=== PATIENT | female | born 1990 | race Caucasian/White ===

== ENCOUNTER → 2019-12-20 | Outpatient (CLI) | payer BC ==
--- NOTE | 2019-12-20 14:16 | Diagnostic Imaging Report ---
PROCEDURE: CT abdomen and pelvis without contrast. TECHNIQUE: Multiple contiguous axial images were obtained through the abdomen and pelvis without the use of intravenous contrast. Auto Exposure Controls were utilized during the CT exam to meet ALARA standards for radiation dose reduction. INDICATION: Right flank pain and hematuria. No prior studies are available for comparison. The lung bases are clear. The liver and gallbladder are unremarkable. No biliary ductal dilatation is seen. The pancreas and spleen are unremarkable. No adrenal mass is detected. No renal calculi are identified. 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 No ureteral calculi or hydronephrosis is detected. Aorta is non-aneurysmal. The small and large bowel loops are normal caliber. Appendix is unremarkable. No inflammatory process is identified. No free fluid or fluid collection is identified. The bladder and uterus are unremarkable. IMPRESSION: Unremarkable noncontrast CT of the abdomen and pelvis. No urinary tract calculi or obstruction is seen. No acute feature is seen. Dictated by: Dictated on workstation # [id number]
== END ==
LOC: RAD 13:52
PROVIDERS: ATTEND Nurse Practitioner
DX: R31.29 Other microscopic hematuria (principal)
CPT/HCPCS: 74176

== ENCOUNTER → 2020-06-27 | Outpatient (CLI) | payer MEDICAID ==
--- NOTE | 2020-06-27 15:05 | Diagnostic Imaging Report ---
INDICATION: Fall with injury to the right ankle. TIME OF EXAM: 2:53 PM. FINDINGS: Three views of the right ankle demonstrate soft tissue swelling about the lateral ankle. The ankle mortise is well maintained. The talar dome is smooth. No fracture or dislocation is identified. IMPRESSION: Lateral soft tissue swelling. No acute bony abnormality is detected. Dictated by: Dictated on workstation # [id number]
== END ==
LOC: RAD 14:24
PROVIDERS: ATTEND Internal Medicine
DX: S99.911A Unspecified injury of right ankle, initial encounter (principal); W19.XXXA Unspecified fall, initial encounter
CPT/HCPCS: 73610

== ENCOUNTER → 2020-10-23 | Outpatient (CLI) | payer MEDICAID ==
--- NOTE | 2020-10-23 16:54 | Diagnostic Imaging Report ---
EXAM: RIBS, LEFT 2-3 VIEWS INDICATION: Posterior left rib pain. History of breast augmentation one year ago. COMPARISON: None. FINDINGS: No left rib fractures are identified. No suspicious osteoblastic or lytic lesions. Left lung field appears clear. Nonspecific bowel gas pattern in the [id number]. IMPRESSION: Negative left rib radiographs. Dictated by: Dictated on workstation # [id number]
== END ==
LOC: RAD 15:30
PROVIDERS: ATTEND Nurse Practitioner Family
DX: R07.81 Pleurodynia (principal); R10.33 Periumbilical pain; Z98.82 Breast implant status
CPT/HCPCS: 71100

== ENCOUNTER → 2020-10-23 | Outpatient (CLI) | payer MEDICAID ==
--- NOTE | 2020-10-23 09:02 | Diagnostic Imaging Report ---
INDICATION: Abdominal pain. PROCEDURE: Ultrasound abdomen complete. TECHNIQUE: Multiple real-time grayscale images were obtained of the abdomen in various projections. The liver is upper limits of normal in size at 17.9 cm. Portal vein is patent and shows normal direction of flow. No discrete liver mass is detected. Gallbladder is without stones or sludge. No wall thickening or biliary ductal dilatation is seen. Pancreas unremarkable. Spleen is normal in size at 10.3 cm. Aorta is nonaneurysmal. IVC is patent. Right and left kidneys are normal in size. There is normal cortical thickness and echogenicity. No calculi or hydronephrosis is detected. There is no ascites. IMPRESSION: Unremarkable abdominal ultrasound. Dictated by: Dictated on workstation # [id number]
== END ==
LOC: RAD 08:15
PROVIDERS: ATTEND Nurse Practitioner Family
DX: R10.33 Periumbilical pain (principal)
CPT/HCPCS: 76700

== ENCOUNTER → 2021-04-19 | Outpatient (CLI) | payer MEDICAID ==
[~2021-04-19] MED LIST: CATHETER FLUSH 10 ML SYR IV PRN
--- NOTE | 2021-04-19 14:11 | Diagnostic Imaging Report ---
INDICATION: Abdominal pain. TECHNIQUE: Patient was administered 5.5 mCi technetium 99m Choletec intravenously and imaging over the abdomen was performed. At 45 minutes, patient ingested one can of Ensure and a gallbladder ejection fraction was calculated. FINDINGS: There is homogeneous uptake of activity by the liver with prompt excretion of activity into the gallbladder and common bile duct. There is normal flow of activity into the small bowel. Gallbladder ejection fraction is normal at 47%. IMPRESSION: Normal HIDA scan and gallbladder ejection fraction. Dictated by: Dictated on workstation # [id number]
== END ==
LOC: CARD 11:14
PROVIDERS: ATTEND Nurse Practitioner Family
DX: R10.11 Right upper quadrant pain (principal)
CPT/HCPCS: 78227

== ENCOUNTER 2021-07-16 05:29 | Outpatient (RCR) | payer MEDICAID ==
[~2021-07-16] VITALS: Ht 167.6 cm; Wt 100.7 kg
== END 2021-07-16 10:36 | disposition home or self-care (01) ==
LOC: PREOP 05:29
PROVIDERS: ATTEND Surgery
DX: Z01.818 Encounter for other preprocedural examination (principal); K21.9 Gastro-esophageal reflux disease without esophagitis; Z20.822 Contact with and (suspected) exposure to COVID-19
CPT/HCPCS: 87635

== ENCOUNTER → 2021-07-17 | Outpatient (CLI) | payer MEDICAID ==
--- NOTE | 2021-07-17 12:18 | Diagnostic Imaging Report ---
PROCEDURE: US Non-ob pelvis comp/trans. TECHNIQUE: Multiple realtime grayscale images were obtained of the pelvis in various projections endovaginally. Transabdominal imaging was also performed. INDICATION: Irregular cycles with intermittent amenorrhea. FINDINGS: Uterus measures 11 x 6.3 x 7 cm. Endometrial stripe measures 1.3 cm. There are no endometrial or myometrial masses. The right ovary measures 5.2 x 2.7 x 4.1 cm. There is a partially collapsed cyst measuring 2.3 x 1.5 cm. The margins are somewhat irregular. There are a few additional small follicular cysts. Left ovary measures 4.9 x 1.8 x 2.9 cm. There is normal blood flow to both ovaries. IMPRESSION: 1. The uterus appears normal. 2. There is a partially collapsed cyst within the right ovary. Dictated by: Dictated on workstation # [id number]
== END ==
LOC: RAD 09:08
PROVIDERS: ATTEND Obstetrics & Gynecology
DX: N83.201 Unspecified ovarian cyst, right side (principal); N92.0 Excessive and frequent menstruation with regular cycle
CPT/HCPCS: 76830; 76856

== ENCOUNTER 2021-07-18 08:44 | Day surgery (SDC) | payer MEDICAID ==
[2021-07-18] VITALS (12 sets, daily range): BP systolic 99–135; BP diastolic 48–81
[~2021-07-18] VITALS: Ht 167.6 cm; Wt 100.7 kg
[2021-07-18] MEDS ORDERED: fentaNYL INJ 100 MCG/2 ML AMP IVP ONE (09:00)
[2021-07-18] MEDS ORDERED: LIDOCAINE JELLY 2% 6 ML SYRINGE MM PRN (09:00)
[2021-07-18] MEDS ORDERED: HURRICAINE EXT TUBE (BENZOCAINE) XX PRN (09:00)
[2021-07-18] MEDS ORDERED: MIDAZOLAM 5 MG/5 ML (VERSED) VIAL IV ONE (09:00)
[2021-07-18] MEDS ORDERED: NS IV 500 ML 500 ML IV PRN (09:00)
--- NOTE | 2021-07-18 10:11 | Progress Note-Pre Operative ---
Pre-Operative Progress Note H&P Reviewed The H&P was reviewed, patient examined and no changes noted. Date Seen by Provider: Jul 18, 2021 Time Seen by Provider: 10:00 Date H&P Reviewed: Jul 18, 2021 Time H&P Reviewed: 10:00 Pre-Operative Diagnosis: LUKAS HELMS MD Jul 18, 2021 10:11
--- NOTE | 2021-07-18 10:11 | Conscious Sedation/ASA ---
Conscious Sedation Pre-Proced Time 10:00 ASA Score 2 For ASA 3 and 4: Consider anesthesia and medical clearance. Also, for patients with a history of failed moderate sedation consider anesthesia. Airway Lungs Heart ASA score ASA 1: a normal healthy patient ASA 2: a patient with a mild systemic disease (mid diabetes, controlled hypertension, obesity ASA 3: a patient with a severe systemic disease that limits activity (angina, COPD, prior Myocardial infarction) ASA 4: a patient with an incapacitating disease that is a constant threat to life (CHF, renal failure) ASA 5: a moribund patient not expected to survive 24 hrs. (ruptured aneurysm) ASA 6: a declared brain- patient whose organs are being harvested. For emergent operations, add the letter E after the classification Mallampati Classification Grade 3 Sedation Plan Analgesia, Amnesia, Plan communicated to team members, Discussed options with patient/fam, Discussed risks with patient/fam The patient is an appropriate candidate to undergo the planned procedure, sedation, and anesthesia. The patient immediately re-assessed prior to indication. LUKAS LAWTON MD Jul 18, 2021 10:11
--- NOTE | 2021-07-18 10:12 | Discharge Inst-Surgical ---
D/C Lap Instructions-LEIGHANN Follow Up Activity as tolerated High Fiber Diet 25g or more per day Avoid Alcohol, Caffeine, Spicy Renningers and Acid foods. Drink 64 fluid oz or more of fluids per day. Symptoms to Report: Fever over 101 degree F, Nausea/Vomiting If any problems/questions: Contact your physician or go to Emergency Room LUKAS LAWTON MD Jul 18, 2021 10:12
[2021-07-18] MEDS ORDERED: ONDANSETRON 4 MG/2 ML (SDV) Z0FRAN IVP PRN (10:15)
[2021-07-18] MEDS ORDERED: ONDANSETRON 4 MG (ZOFRAN) ORAL DISSOLVE TAB PO PRN (10:15)
--- NOTE | 2021-07-18 10:51 | Progress Note-Post Operative ---
Post-Operative Progess Note Surgeon (s)/Power Barker (s) Surgeon LUKAS LAWTON MD Power Barker: none Pre-Operative Diagnosis GERD Post-Operative Diagnosis reflux esophagitis(stage 3), moderate HH(3cm), moderate gastritis. Procedure & Operative Findings Date of Procedure 07/18/21 Procedure Performed/Findings EGD wt bx. Anesthesia Type minimal Estimated Blood Loss Estimated blood loss (mL): minimal Specimens/Packing Specimens Removed ge jxn, antrum LUKAS LAWTON MD Jul 18, 2021 10:51
[2021-07-18] MEDS ORDERED: fentaNYL INJ 100 MCG/2 ML AMP ONE (10:59)
[2021-07-18] MEDS ORDERED: MIDAZOLAM 5 MG/5 ML (VERSED) VIAL ONE (11:00)
--- NOTE | 2021-07-18 11:43 | Progress Note-Post Operative ---
Post-Operative Progess Note Surgeon (s)/Field Specialist (s) Surgeon LUKAS LAWTON MD Field Specialist: none Pre-Operative Diagnosis GERD Post-Operative Diagnosis reflux esophagitis(stage 2), small-moderate ype 1 HH(3cm), mild-mod gastritis. Procedure & Operative Findings Date of Procedure 07/18/21 Procedure Performed/Findings EGD with bx. Anesthesia Type cs Estimated Blood Loss Estimated blood loss (mL): minimal Specimens/Packing Specimens Removed ge jxn, antrum LUKAS LAWTON MD Jul 18, 2021 11:43
--- NOTE | 2021-07-18 15:25 | OPERATIVE REPORT ---
DATE OF SERVICE: 07/18/2021 ATTENDING PRIMARY CARE PHYSICIAN: Dr. Mejia([place], #[phone]) PREOPERATIVE DIAGNOSES: Gastroesophageal reflux disease, morbid obesity. POSTOPERATIVE DIAGNOSES: Reflux esophagitis stage II, small to moderate size hiatal hernia approximately 2.5 to 3 cm in size and a type 1 sliding hiatal hernia, mild to moderate gastritis. No distal obstructions. PROCEDURE: EGD with biopsy. SURGEON: Lukas Lawton MD. ANESTHESIA: Conscious sedation. ESTIMATED BLOOD LOSS: Minimal. FINDINGS: Reflux esophagitis stage II, small to moderate size hiatal hernia approximately 2.5 to 3 cm in size and a type 1 sliding hiatal hernia, mild to moderate gastritis. No distal obstructions. DISPOSITION: The patient tolerated the procedure well. INDICATIONS: The patient is a 31-year-old female who has had issues with gastroesophageal reflux disease for many years. She has also been overweight for the past approximately 5 to 7 years. She reports that in her early 20s, she did gain the majority of her adult weight. She states that she has tried a number of diet and exercise attempts, no success. She is scheduled to undergo bariatric surgery in a program in [place] and will need to undergo the necessary evaluations and tests including an overnight oximetry study as well as possible sleep study and nutrition and psychology evaluation as well as an upper endoscopy. She reports that she has had a longstanding history of gastroesophageal reflux disease as well. DESCRIPTION OF PROCEDURE: The patient was brought to the endoscopy suite, laid in the left lateral decubitus position. After adequate IV pain, sedative medications and conscious sedation anesthesia, the mouthpiece was applied. The endoscope was placed in the mouth, visualizing the pharynx and hypopharyngeal region. Vocal cords, epiglottis and vallecula identified and appeared to be normal. The endoscope was then gently intubated into the esophageal opening and esophagus insufflated. The endoscope was then advanced through the first, second and third portion of esophagus at the level of the GE junction, a reflux esophagitis stage II identified. No ulcers or strictures identified in this region. The GE junction was also intrathoracic consistent with a hiatal hernia. Biopsies taken of the GE junction with forceps with visualization of good hemostasis. The endoscope was then advanced in the stomach and endoscope retroflexed, visualizing a small to moderate size hiatal hernia approximately 2.5 to 3 cm in size. There also appeared to be a type 1 sliding hiatal hernia. There was mild to moderate gastritis. No formal ulcerations, polyps, or any neoplasms. A biopsy was taken of the antrum to rule out H. pylori with visualization of good hemostasis. The endoscope was then advanced to the pylorus and the first and second portion of the duodenum, which appeared normal with no distal obstructions. The endoscope was then slowly withdrawn while taking a second look and suctioning of residual air with no additional findings. The patient tolerated the procedure well. At this time, there is no contraindication to bariatric surgical procedure; however, if she does proceed with a gastric restrictive procedure intraoperatively if there is a significant size hiatal hernia, this may need to be repaired simultaneously. Otherwise, we will recommend continued medical management with weight loss as well as small and more frequent meals, avoidance of eating at night as well as head elevation while lying supine. Job ID: [id number] DocumentID: [id number] Dictated Date: 07/18/2021 11:54:56 Technical Support 1 Software Engineer Date: 07/18/2021 15:24:49 Dictated By: LUKAS LAWTON MD [facility]
== END 2021-07-18 12:00 | disposition home or self-care (01) ==
LOC: ENDO 08:44
PROVIDERS: ATTEND Surgery
DX: K21.00 Gastro-esophageal reflux disease with esophagitis, without bleeding (principal); K29.70 Gastritis, unspecified, without bleeding; E66.01 Morbid (severe) obesity due to excess calories; K44.9 Diaphragmatic hernia without obstruction or gangrene; Z98.84 Bariatric surgery status; Z80.0 Family history of malignant neoplasm of digestive organs; Z68.35 Body mass index [BMI] 35.0-35.9, adult
CPT/HCPCS: 84703

== ENCOUNTER → 2021-09-04 | Outpatient (CLI) | payer MEDICAID ==
--- NOTE | 2021-09-04 15:08 | Diagnostic Imaging Report ---
INDICATION: CHRONIC COUGH COMPARISON: None FINDINGS: Frontal and lateral views of the chest demonstrate normal heart size and pulmonary vascularity. The lungs are clear. There are no signs of infiltrate, pleural effusions or pneumothoraces. The visualized osseous structures show no acute abnormalities. IMPRESSION: 1. No acute process. No signs of infiltrates, effusions or pneumothoraces. Dictated by: Dictated on workstation # [id number]
== END ==
LOC: RAD 14:45
DX: R05.3 Chronic cough (principal)
CPT/HCPCS: 71046

== ENCOUNTER 2021-11-30 16:02 | Emergency (ER) | payer MEDICAID ==
[~2021-11-30] VITALS: Ht 160 cm; Wt 95.2 kg
--- NOTE | 2021-11-30 16:26 | ED Cough/URI ---
General Chief Complaint: COVID19 Suspect/Confirmed Stated Complaint: COUGH/FEVER/SOB/COVID NEGATIVE Nursing Triage Note: PT AMBULATORY TO ER. PT C/O NASAL/CHEST CONGESTION, SOB, COUGH. PT REPORTS IS TRYING TO GET A GASTRIC BYPASS SURGERY SCHEDULED, PT WAS TOLD SHE NEEDED TO USE A CPAP MACHINE PRIOR TO SURGERY, STARTED USING CPAP AT NIGHT ON 10/29, PT REPORTS SINUSES FEEL SWOLLEN AND DIFFICULTY BREATHING THROUGH NOSE. PT REPORTS TOOK A AT HOME COVID TEST YESTERDAY, NEGATIVE. Source: patient Exam Limitations: no limitations History of Present Illness Date Seen by Provider: Nov 30, 2021 Time Seen by Provider: 16:23 Initial Comments Patient is a 31-year-old female presents ED with nasal congestion, sinus pressure and cough for the past 2 weeks or so. She states symptoms appear to start after she started her CPAP machine on 29 October. Started having nasal congestion. Has been using nasal spray phenylephrine, Mucinex without much improvement. Recently finished a dose of azithromycin without much improvement. She states her nostrils feel clogged. She reports a cough without shortness of breath or wheezing. Denies of any ear pain. Intermittent fever. She tested negative for Covid yesterday. Denies of any headache, dizziness, abdominal pain. Intermittent diarrhea with nausea. Patient with sinus pressure. Allergies and Home Medications Allergies Coded Allergies: haloperidol (Unverified Allergy, Unknown, 07/12/21) Patient Home Medication List Home Medication List Reviewed: Yes Amoxicillin/Potassium Clav (Augmentin 875-125 Tablet) 1 Each Tablet, 1 EACH PO BID Prescribed by: HORACIO SOMMERS on 11/30/211716 Fluticasone Propionate (Flonase Allergy Relief) 9.9 Ml [place].susp, 1 SPRAY NS DAILY Prescribed by: HORACIO SOMMERS on 11/30/211716 Review of Systems Review of Systems Constitutional: No chills, No diaphoresis; fever, malaise EENTM: nose congestion; No blurred vision, No mouth pain, No mouth swelling, No throat pain, No throat swelling Respiratory: cough; No short of breath Cardiovascular: No chest pain, No edema Gastrointestinal: diarrhea, nausea; No vomiting Genitourinary: No decreased output, No dysuria Musculoskeletal: No back pain, No joint pain All Other Systems Reviewed Negative Unless Noted: Yes Past Jbgsxln-Ieqrzn-Aysxhb Hx Patient Social History Tobacco Use?: No Use of E-Cig and/or Vaping dev: No Substance use?: No Alcohol Use?: No Pt feels they are or have been: No Past Medical History Surgeries: Yes (BREAST AUGMENTATION) Tonsillectomy Respiratory: No Cardiac: No Neurological: No Last Menstrual Period: Nov 24, 2021 Genitourinary: No Gastrointestinal: Yes Gastroesophageal Reflux Musculoskeletal: No Endocrine: No HEENT: No Cancer: No Psychosocial: Yes Anxiety Integumentary: No Blood Disorders: No (JAYY MOUNTAIN SPOTTED FEVER) Physical Exam Vital Signs - First Documented 11/30/21 16:10 Temp 36.5 Pulse 90 Resp 20 B/P (MAP) 126/90 (102) Pulse Ox 97 O2 Delivery Room Air Capillary Refill : Height: '" Weight: lbs. oz. kg; 37.00 BMI Method: General Appearance: WD/WN, no apparent distress Eyes: Bilateral Eye Normal Inspection, Bilateral Eye PERRL, Bilateral Eye EOMI, Bilateral Eye Abnormal EOM HEENT: PERRL/EOMI, normal ENT inspection, TMs normal, other (Maxillary sinus tenderness bilateral.) Neck: non-tender, full range of motion, supple, normal inspection Respiratory: chest non-tender, lungs clear, normal breath sounds, no res piratory distress, no accessory muscle use Cardiovascular: regular rate, rhythm, no edema, no gallop, no JVD Gastrointestinal: normal bowel sounds, non tender, soft Extremities: normal range of motion, non-tender, normal inspection, no pedal edema Neurologic/Psychiatric: fixing carpenter II-XII nml as tested, no motor/sensory deficits, alert, normal mood/affect Progress/Results/Core Measures Suspected Sepsis SIRS Temperature: Pulse: 90 Respiratory Rate: 20 Blood Pressure 126 /90 Mean: 102 Results/Orders Lab Results Laboratory Tests Test 11/30/21 16:11 Range/Units Influenza Type A (RT-PCR) Not Detected Not Detecte Influenza Type B (RT-PCR) Not Detected Not Detecte SARS-CoV-2 RNA (RT-PCR) Not Detected Not Detecte My Orders Orders - LAYTON PINEDA Covid 19 Inhouse Test (11/30/21 16:06) Influenza A And B By Pcr (11/30/21 16:06) Vital Signs/I&O 11/30/21 11/30/21 11/30/21 16:10 16:30 17:22 Temp 36.5 Pulse 90 85 89 Resp 20 18 18 B/P (MAP) 126/90 (102) 129/90 120/83 Pulse Ox 97 100 99 O2 Delivery Room Air Room Air Room Air Capillary Refill : Blood Pressure Mean: 102 Departure Communication (Admissions) Patient presents ED with URI symptoms for the past few weeks. Symptoms started after she was placed on a CPAP machine. Patient scheduled for gastric bypass surgery. Patient with nasal congestion, sinus pressure, fever, cough. Patient vital signs stable. Recently finished azithromycin without much improvement. Patient with maxillary sinus tenderness. She does sound congested. Oropharynx patent. Bilateral TMs clear. Patient in no acute respiratory distress. No evidence of wheezing. Covid and influenza negative. Concerning for sinus infection. Symptoms may be worsening secondary to the CPAP. Discussed cleaning the machine and may attempt avoiding using it for a few days. Recommend cleaning of tubing and machine. Impression Primary Impression: Sinusitis Disposition: HOME, SELF-CARE Condition: Stable Departure-Patient Inst. Decision time for Depature: 17:16 Referrals: MAGNOLIA MALDONADO DO (PCP) Primary Care Physician LILA MALDONADO DNP (Family) Primary Care Physician Patient Instructions: Sinusitis, Adult ED Add. Discharge Instructions: Recommend Sudafed. Recommend keeping your CPAP clean. All discharge instructions reviewed with patient and/or family. Voiced understanding. Scripts Fluticasone Propionate (Flonase Allergy Relief) 9.9 Ml [place].susp 1 SPRAY NS DAILY, #1 EACH 1 SPRAY EACH NARE DAILY Prov: LAYTON PINEDA 11/30/21 Amoxicillin/Potassium Clav (Augmentin 875-125 Tablet) 1 Each Tablet 1 EACH PO BID for 10 Days, #20 TAB Prov: LAYTON PINEDA 11/30/21 LAYTON PINEDA Nov 30, 2021 16:25
[2021-11-30] MEDS ORDERED: AMOX-358 PO (17:17)
[2021-11-30] MEDS ORDERED: FLUT9.9S NS (17:17)
[2021-11-30 17:22] VITALS: BP 120/83
== END 2021-11-30 17:22 | disposition home or self-care (01) ==
LOC: EDUNIT# 16:02 → ER 16:04
DX: J32.9 Chronic sinusitis, unspecified (principal); Z20.822 Contact with and (suspected) exposure to COVID-19
CPT/HCPCS: 87636; 99283